=== PATIENT | male | born 1985 | race Caucasian/White ===

== ENCOUNTER 2017-03-18 05:55 | Emergency (ER) | payer MEDICAID, OTHER ==
[~2017-03-18] VITALS: Ht 170.2 cm; Wt 66.5 kg
[2017-03-18 06:01] VITALS: Ht 170.2 cm; Wt 66.5 kg
[2017-03-18] MEDS ORDERED: CEPHALEXIN 500 MG CAP PO STA (06:14)
[2017-03-18] MEDS ORDERED: NEOMYC/POLYMYX/BACIT 30 GM OINT TOP STA (06:14)
[2017-03-18] MEDS ORDERED: TRIMETHOPRIM/SULFAMETHOX (DS) TAB PO STA (06:14)
[2017-03-18] MEDS ORDERED: CEPH-443 PO (06:17)
[2017-03-18] MEDS ORDERED: SULF1TAB31 PO (06:17)
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
--- NOTE | 2017-03-18 07:20 | RADRPT ---
PROCEDURE: XR Ankle. CLINICAL INDICATION: Left ankle pain following injury. TECHNIQUE: Three views of the left ankle were performed. COMPARISON: None. FINDINGS: The osseous structures demonstrate normal alignment and mineralization. No acute fracture or disloc ation is seen. The ankle mortise is intact. No osteochondral lesion is identified. There is an are a of mass-like calcification within the soft tissues along the lateral aspect of the distal fibula m easuring 1.3 x 4.3 cm. There is no associated periostitis. The adjacent cortex of the fibula is in tact. IMPRESSION: Mass-like soft tissue calcification along the lateral margin of the distal fibula. No underlying co rtical or periosteal abnormality is appreciated. 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 MRI is recommended for further evaluation. RPTAT: HH .Elham Arteaga MD, Date Time Electronically viewed and signed by .Elham Arteaga MD, on 03/18/2017 07:20 .G/
== END 2017-03-18 07:50 | disposition home or self-care (01) ==
LOC: FTE 05:55
DX: L03.116 Cellulitis of left lower limb (principal); S93.402A Sprain of unspecified ligament of left ankle, initial encounter; F17.210 Nicotine dependence, cigarettes, uncomplicated; V18.0XXA Pedal cycle driver injured in noncollision transport accident in nontraffic accident, initial encounter
CPT/HCPCS: 73610; Z7502; Z7610